=== PATIENT | female | born 1965 | race Two or more races ===

== ENCOUNTER 2022-05-19 11:09 | Outpatient (CLI) | payer OTHER ==
[~2022-05-19 11:09] MED LIST: LOSARTAN-HCTZ1 EAC2
== END 2022-05-19 11:11 | disposition home or self-care (01) ==
LOC: SONOGRAMA 11:09
PROVIDERS: ATTEND Pathology Anatomic Pathology
DX: D34 Benign neoplasm of thyroid gland (principal); E04.9 Nontoxic goiter, unspecified; E04.2 Nontoxic multinodular goiter